=== PATIENT | female | born 1990 | race African-American/Black ===

== ENCOUNTER 2016-10-27 07:20 | Emergency (ER) | payer SELFPAY ==
[~2016-10-27] VITALS: Ht 162.6 cm; Wt 54.4 kg
[2016-10-27] MEDS ORDERED: MORPHINE SULFATE INJ 2 MG/ML DISP.SYRIN ONE (07:39)
[2016-10-27] MEDS ORDERED: IV NS 0.9% 1,000 ML ONE ×2 (07:39→08:03)
[2016-10-27] MEDS ORDERED: IV SET PRIMARY PUMP SET 1 EA INFUS.SET MC ONE ×4 (07:40→08:40)
[2016-10-27] MEDS: IV NS 0.9% 1,000 ML BAG IV ONE ×2 (07:45→08:08)
[2016-10-27] MEDS: MORPHINE SULFATE INJ 2 MG/ML DISP.SYRIN IV ONE (07:52)
[2016-10-27 07:59] LABS: BASOPHILS % (AUTO) 0.1 % (0.0-2.0); EOSINOPHILS % (AUTO) 0.3 % (0.0-6.0); HEMATOCRIT 26 % (33-45); HEMOGLOBIN 8.6 g/dL (11.5-14.8); LYMPHOCYTES # (AUTO) 1.9 /CMM (0.8-4.8); LYMPHOCYTES % (AUTO) 11.4 % (20.0-44.0); MEAN CORPUSCULAR HEMOGLOBIN 29 PG (26.0-33.0); MEAN CORPUSCULAR HGB CONC 33 g/dl (31.0-36.0); MEAN CORPUSCULAR VOLUME 88 fL (82-100); MONOCYTES # (AUTO) 0.1 /CMM (0.1-1.30); MONOCYTES % (AUTO) 0.5 % (2.0-12.0); NEUTROPHILS # (AUTO) 14.5 /CMM (1.8-8.9); NEUTROPHILS % (AUTO) 87.7 % (43.0-81.0); PLATELET COUNT (AUTO) 263 /CMM (150-450); RDW COEFFICIENT OF VARIATION 13.4 (11.5-15.0); RED BLOOD CELL COUNT(AUTO) 2.98 MIL/uL (4.0-5.2); WHITE BLOOD COUNT (AUTO) 16.6 K/uL (4.3-11.0)
[2016-10-27 08:09] LABS: CALCIUM, SERUM 8.5 mg/dL (8.5-10.1); CREATININE 1.4 mg/dL (0.6-1.3)
[2016-10-27 08:12] LABS: POTASSIUM 2.8 mmol/L (3.5-5.1)
[2016-10-27 08:19] VITALS: BP 93/48
[2016-10-27] MEDS ORDERED: POTASSIUM CL. PREMIX PERIPHER. 50 ML ONE ×2 (08:28→09:48)
[2016-10-27] MEDS ORDERED: FENTANYL PF 100MCG/2ML AMPUL ONE ×2 (08:28→09:48)
[2016-10-27 08:34] LABS: INR 1.06 (0.87-1.13); PROTHROMBIN TIME 11.4 SECS (9.5-12.7)
[2016-10-27] MEDS: FENTANYL PF 100MCG/2ML AMPUL IV ONE ×2 (08:40→09:59)
[2016-10-27] MEDS ORDERED: POTASSIUM CL. PREMIX PERIPHER. 200 ML ONE (08:40)
[2016-10-27] MEDS: POTASSIUM CHLORIDE 10 MEQ/50 ML PREMIXED IVPB FOR PERIPHERAL LINE IV ONE (08:41)
[2016-10-27] MEDS ORDERED: BLOOD IV SET 1 EA INFUS.SET MC ONE ×2 (09:05→09:48)
[2016-10-27] MEDS ORDERED: IV NS 0.9% 250 ML IV ONE ×2 (09:10→09:49)
== END 2016-10-27 10:17 | disposition short-term general hospital (02) ==
LOC: ER 07:22
DX: O00.90 Unspecified ectopic pregnancy without intrauterine pregnancy (principal); O00.10 Tubal pregnancy without intrauterine pregnancy; K66.1 Hemoperitoneum; O08.5 Metabolic disorders following an ectopic and molar pregnancy; E87.6 Hypokalemia; R73.9 Hyperglycemia, unspecified; Z3A.10 10 weeks gestation of pregnancy
CPT/HCPCS: 36415; 76856-TC; 80048-TC; 82962-TC; 84702-TC; 85025-TC; 85610-TC; 85730-TC; 86850-TC; 86921-TC; A4606; J2270; J3010; J3480; J7030; J7050; P9016-BL; Z7610